=== PATIENT | male | born 1990 | race Caucasian/White ===

== ENCOUNTER 2016-05-24 17:25 | Emergency (ER) | payer MEDICAID ==
[~2016-05-24] VITALS: Ht 190.5 cm; Wt 88.5 kg
[2016-05-24 17:43] VITALS: BP 127/82
[2016-05-24] MEDS: CLINDAMYCIN 600 MG/4 ML VL IM ONE (18:30)
[2016-05-24] MEDS: HYDROcodone-ACET 5/325MG TAB PO ONE (18:30)
== END 2016-05-24 18:59 | disposition home or self-care (01) ==
LOC: ER 17:30
DX: K04.7 Periapical abscess without sinus (principal)
CPT/HCPCS: 96372